=== PATIENT | male | born 1990 | race African-American/Black ===

== ENCOUNTER 2017-10-14 01:01 | Emergency (ER) | payer SELFPAY ==
[~2017-10-14] VITALS: Ht 175.3 cm; Wt 86.5 kg
[2017-10-14 01:03] VITALS: BP 148/89
== END 2017-10-14 01:15 | disposition left against medical advice (07) ==
LOC: EME 01:01
DX: Z53.21 Procedure and treatment not carried out due to patient leaving prior to being seen by health care provider (principal)

== ENCOUNTER 2017-10-14 12:30 | Emergency (ER) | payer SELFPAY ==
[~2017-10-14] VITALS: Ht 175.3 cm; Wt 82.5 kg
[2017-10-14 12:51] VITALS: BP 148/75
== END 2017-10-14 12:50 | disposition left against medical advice (07) ==
LOC: EME 12:30
DX: Z53.21 Procedure and treatment not carried out due to patient leaving prior to being seen by health care provider (principal)
CPT/HCPCS: 99281; 99282